=== PATIENT | male | born 1980 | race Asian ===

== ENCOUNTER 2021-01-16 20:23 | Emergency (ER) | payer OTHER ==
[2021-01-16 20:50] VITALS: BP 154/92
[2021-01-16 21:12] LABS: Basophils % (Auto) 0.4 % (0.0-1.8); Eosinophils # (Auto) 0.1 K/mm3 (0.0-0.4); Eosinophils % (Auto) 0.9 % (0.0-4.3); Hematocrit 42.4 % (35.5-45.6); Hemoglobin 14.8 gm/dl (11.8-15.2); Lymphocytes # (Auto) 1.6 K/mm3 (1.2-5.4); Lymphocytes % (Auto) 18.6 % (13.4-35.0); Mean Corpuscular HGB Conc 35 % (32-34); Mean Corpuscular Volume 104 fl (84-94); Monocytes # (Auto) 0.4 K/mm3 (0.0-0.8); Monocytes % (Auto) 5.1 % (0.0-7.3); Platelet Count 257 K/mm3 (140-440); Red Blood Count 4.06 M/mm3 (3.65-5.03); Red Cell Distribution Width 12.3 % (13.2-15.2)
[2021-01-16 21:28] LABS: Alanine Aminotransferase 23 units/L (7-56); Albumin 4.5 g/dL (3.9-5); BUN/Creatinine Ratio 15; Blood Urea Nitrogen 15 mg/dL (9-20); Calcium 9.4 mg/dL (8.4-10.2); Hemolysis Index 6
[2021-01-16 21:33] LABS: Bacteria,Urine 2+ /HPF (Negative); Bilirubin,Urine NEG (Negative); Blood,Urine NEG (Negative); Color,Urine Yellow (Yellow); Mucus,Urine FEW /HPF; Protein,Urine <15 mg/dL mg/dL (Negative); Urobilinogen,Urine < 2.0 mg/dL (<2.0); WBC,Urine < 1.0 /HPF (0.0-6.0)
--- NOTE | 2021-01-17 00:46 | Emergency Department Report ---
ED Male HPI - General Chief complaint: Urogenital-Male Stated complaint: BLADDER PAINS Time Seen by Provider: 01/17/21 00:40 Source: patient Mode of arrival: Ambulatory Limitations: No Limitations - History of Present Illness Initial comments: Patient is a 40-year-old male who presents for bilateral testicular pain intermittently x2 months. Patient denies frequency or urgency no hematuria no penile discharge. No open lesions no wounds. Patient is voiding. Pain described as 4/10 exacerbated by palpation and movement. Pain is relieved by nothing tried. Patient is not . MD Complaint: testicle pain - Related Data Previous Rx's Medication Instructions Recorded Last Taken Type Ibuprofen [Motrin 800 MG tab] 800 mg PO Q8HR PRN #30 tablet 01/17/21 Unknown Rx levoFLOXacin [Levaquin TAB] 500 mg PO DAILY #10 tablet 01/17/21 Unknown Rx Allergies Allergy/AdvReac Type Severity Reaction Status Date / Time No Known Allergies Allergy Unverified 01/16/21 20:48 ED Review of Systems ROS: Stated complaint: BLADDER PAINS Other details as noted in HPI Constitutional: denies: chills, fever Eyes: denies: eye pain, eye discharge, vision change ENT: denies: ear pain, throat pain Respiratory: denies: cough, shortness of breath, wheezing Cardiovascular: denies: chest pain, palpitations Endocrine: no symptoms reported Gastrointestinal: denies: abdominal pain, nausea, diarrhea Genitourinary: testicular pain. denies: urgency, dysuria, frequency, testicular mass Musculoskeletal: denies: back pain, joint swelling, arthralgia Skin: denies: rash, lesions Neurological: denies: headache, weakness, paresthesias Psychiatric: denies: anxiety, depression Hematological/Lymphatic: denies: easy bleeding, easy bruising ED Past Medical Hx - Past Medical History Previous Medical History?: No - Surgical History Additional Surgical History: appendectomy - Social History Smoking Status: Current Every Day Smoker - Medications Home Medications: Home Medications Medication Instructions Recorded Confirmed Last Taken Type Ibuprofen [Motrin 800 MG tab] 800 mg PO Q8HR PRN #30 tablet 01/17/21 Unknown Rx levoFLOXacin [Levaquin TAB] 500 mg PO DAILY #10 tablet 01/17/21 Unknown Rx ED Physical Exam - General Limitations: No Limitations General appearance: alert, in no apparent distress - Head Head exam: Present: atraumatic, normocephalic - Eye Eye exam: Present: normal appearance, EOMI Pupils: Present: normal accommodation - ENT ENT exam: Present: mucous membranes moist - Neck Neck exam: Present: normal inspection - Respiratory Respiratory exam: Present: normal lung sounds bilaterally. Absent: respiratory distress, wheezes, stridor - Cardiovascular Cardiovascular Exam: Present: regular rate, normal rhythm, normal heart sounds. Absent: systolic murmur, diastolic murmur, rubs, gallop - GI/Abdominal GI/Abdominal exam: Present: soft, normal bowel sounds. Absent: distended, ten derness, guarding, rebound, rigid, bruit, hernia - Rectal Rectal exam: Present: deferred - exam: Present: testicular tenderness, circumcision. Absent: urethral discharge, scrotal swelling, vertical testicular lie External exam: Present: other (scrotal tenderness, epididymal tenderness bilat ). Absent: erythema, swelling, lesions, lacerations, ecchymosis, bleeding - Extremities Exam Extremities exam: Present: normal inspection, full ROM. Absent: tenderness - Back Exam Back exam: Present: normal inspection, full ROM. Absent: CVA tenderness (R), CVA tenderness (L) - Neurological Exam Neurological exam: Present: alert, oriented X3, normal gait - Psychiatric Psychiatric exam: Present: normal affect, normal mood - Skin Skin exam: Present: warm, dry, intact, normal color. Absent: rash ED Course Vital Signs 01/16/21 20:49 Temperature 98.4 F Pulse Rate 87 Respiratory 18 Rate Blood Pressure 154/92 O2 Sat by Pulse 97 Oximetry ED Medical Decision Making - Lab Data Result diagrams: 01/16/21 20:55 01/16/21 20:55 Labs 01/16/21 01/16/21 01/16/21 20:55 20:55 Unknown WBC 8.8 RBC 4.06 Hgb 14.8 Hct 42.4 MCV 104 H MCH 36 H MCHC 35 H RDW 12.3 L Plt Count 257 Lymph % (Auto) 18.6 [place] % (Auto) 5.1 Eos % (Auto) 0.9 Baso % (Auto) 0.4 Lymph # (Auto) 1.6 [place] # (Auto) 0.4 Eos # (Auto) 0.1 Baso # (Auto) 0.0 Seg Neutrophils % 75.0 H Seg Neutrophils # 6.6 Sodium 138 Potassium 4.4 Chloride 101.3 Carbon Dioxide 27 Anion Gap 14 BUN 15 Creatinine 1.0 Estimated GFR > 60 BUN/Creatinine Ratio 15 Glucose 96 Calcium 9.4 Total Bilirubin 1.10 AST 30 ALT 23 Alkaline Phosphatase 76 Total Protein 7.2 Albumin 4.5 Albumin/Globulin Ratio 1.7 Urine Color Yellow Urine Turbidity Clear Urine pH 6.0 Ur Specific [place] 1.015 Urine Protein <15 mg/dl Urine Glucose (UA) Neg Urine Ketones Neg Urine Blood Neg Urine Nitrite Neg Urine Bilirubin Neg Urine Urobilinogen < 2.0 Ur Leukocyte Esterase Neg Urine WBC (Auto) < 1.0 Urine RBC (Auto) 1.0 U Epithel Cells (Auto) 1.0 Urine Bacteria (Auto) 2+ Urine Mucus Few - Medical Decision Making This is straight. For epididymitis versus orchitis, patient is 40 years old, plan Levaquin p.o. daily x10 days. Follow-up with PCP in 2 to 3 days. Patient will return to ED should symptoms worsen. There is no problem voiding. There is no scrotal swelling. This is not testicular torsion. There is been no fevers no chills no nausea vomiting patient has no hernia history. Critical care attestation.: If time is entered above; I have spent that time in minutes in the direct care of this critically ill patient, excluding procedure time. ED Disposition Clinical Impression: Orchitis and epididymitis Disposition: DC-01 TO HOME OR SELFCARE Is pt being admited?: No Does the pt Need Aspirin: No Condition: Stable Instructions: Epididymitis (ED), Testicular Self-Exam, [id number], Epididymitis Prescriptions: levoFLOXacin [Levaquin TAB] 500 mg PO DAILY #10 tablet Ibuprofen [Motrin 800 MG tab] 800 mg PO Q8HR PRN #30 tablet PRN Reason: pain Referrals: PRIMARY CAREMD [Primary Care Provider] - 3-5 Days ANDRES KILLIAN MD [Staff Physician] - 3-5 Days Forms: STI Treatment and Prevention Time of Disposition: 00:49
== END 2021-01-17 01:00 | disposition home or self-care (01) ==
LOC: ED 20:23
DX: N45.2 Orchitis (principal); N45.1 Epididymitis; F17.200 Nicotine dependence, unspecified, uncomplicated; Z79.899 Other long term (current) drug therapy
CPT/HCPCS: 36415; 80053; 81001; 85025; 99283